=== PATIENT | male | born 1995 | race American Indian/Alaskan Native ===

== ENCOUNTER 2017-07-02 09:28 | Emergency (ER) | payer BC, OTHER ==
--- NOTE | 2017-07-02 09:42 | EDM.PDOC ---
ED HPI GENERAL MEDICAL PROBLEM - General Chief Complaint: General Stated Complaint: RT ANKLE Time Seen by Provider: 07/02/17 09:37 Source of Information: Reports: Patient History Limitations: Reports: No Limitations - History of Present Illness INITIAL COMMENTS - FREE TEXT/NARRATIVE: 21 yo Elem Male c/o twisting right ankle last night @ 10pm on uneven cement Onset Date: 07/01/17 Onset Time: 22:00 Duration: Hour(s): Location: Reports: Lower Extremity, Right Quality: Reports: Ache Severity: Mild Improves with: Reports: Immobilization Worsens with: Reports: Movement Context: Reports: Trauma (twisted on un-even cement) Associated Symptoms: Reports: No Other Symptoms Right Ankle Pain Score (Numeric/FACES): 5 - Related Data Allergies Allergy/AdvReac Type Severity Reaction Status Date / Time No Known Drug Allergies Allergy none Verified 07/02/17 09:38 Home Meds: Home Meds Lisinopril 10 mg PO DAILY 07/02/17 [History] metFORMIN HCl [Metformin HCl] 100 mg PO BID 07/02/17 [History] Past Medical History - Past Health History Medical/Surgical History: Denies Medical/Surgical History Social & Family History - Tobacco Use Smoking Status *Q: Never Smoker Second Hand Smoke Exposure: No - Alcohol Use Days Per Week of Alcohol Use: 0 - Recreational Drug Use Recreational Drug Use: No Review of Systems - Review of Systems Review Of Systems: See Below Constitutional: Reports: No Symptoms Eyes: Reports: No Symptoms Ears: Reports: No Symptoms Nose: Reports: No Symptoms Mouth/Throat: Reports: No Symptoms Respiratory: Reports: No Symptoms Cardiovascular: Reports: No Symptoms GI/Abdominal: Reports: No Symptoms Genitourinary: Reports: No Symptoms Musculoskeletal: Reports: Joint Pain (right ankle) Skin: Reports: No Symptoms Neurological: Reports: No Symptoms Psychiatric: Reports: No Symptoms ED EXAM, GENERAL - Physical Exam Exam: See Below Exam Limited By: No Limitations General Appearance: Alert, No Apparent Distress, Obese Eye Exam: Bilateral Eye: EOMI Ears: Normal External Exam Throat/Mouth: Normal Inspection Head: Atraumatic Neck: Normal Inspection, Supple Respiratory/Chest: No Respiratory Distress, Lungs Clear Cardiovascular: Normal Peripheral Pulses, Regular Rate, Rhythm GI/Abdominal: Normal Bowel Sounds, Soft Back Exam: Normal Inspection Extremities: Normal Inspection, Limited Range of Motion Neurological: Alert, Oriented, CN II-XII Intact Psychiatric: Normal Affect Skin Exam: Warm, Dry, Erythema (right anterior ankle) Course - Vital Signs Last Recorded V/S: Last Vital Signs Temp 36.3 C 07/02/17 09:54 Pulse 82 07/02/17 09:54 Resp 16 07/02/17 09:54 BP 137/71 07/02/17 09:54 Pulse Ox 99 07/02/17 09:54 - Orders/Labs/Meds Orders: Active Orders 24 hr Category Date Time Status Ankle 2V Rt [CR] Urgent Exams 07/02/17 09:35 Taken Departure - Departure Time of Disposition: 10:00 Disposition: Home, Self-Care 01 Condition: Good Clinical Impression: Strain of ankle, right Qualifiers: Encounter type: initial encounter Qualified Code(s): S96.911A - Strain of unspecified muscle and tendon at ankle and foot level, right foot, initial encounter - Discharge Information Forms: ED Department Discharge Additional Instructions: Rest Please elevate and Apply Ice Pack TID X 15mins. For pain take OTC Extra Strength Tylenol 500mg Q 4-6 hours PRN F/U w/ PCP - My Orders Last 24 Hours: My Active Orders 07/02/17 09:35 Ankle 2V Rt [CR] Urgent - Assessment/Plan Last 24 Hours: My Active Orders 07/02/17 09:35 Ankle 2V Rt [CR] Urgent
[2017-07-02 09:48] VITALS: BP 137/71
--- NOTE | 2017-07-02 10:23 | CR ---
CLINICAL HISTORY: 21-year-old female "twisted" right ankle (yesterday). INTERPRETATION: AP lateral views of the right ankle confirm some mild bimalleolar soft tissue swellin g but no appreciable ankle joint effusion and no sign of underlying fracture right ankle bones. Symme trically intact tibiotalar mortise joint. Calcaneus and hindfoot unremarkable. No foreign bodies. CONCLUSION: Sprain.
== END 2017-07-02 10:13 | disposition home or self-care (01) ==
LOC: DL.ED 09:28
DX: S96.911A Strain of unspecified muscle and tendon at ankle and foot level, right foot, initial encounter (principal); Z79.899 Other long term (current) drug therapy; X50.1XXA Overexertion from prolonged static or awkward postures, initial encounter
CPT/HCPCS: 73600-RT; 99283

== ENCOUNTER 2019-12-16 00:03 | Emergency (ER) | payer MEDICAID, OTHER ==
[2019-12-16] MEDS ORDERED: Ondansetron 4 MG Tab.DIS PO ONE (02:26)
[2019-12-16] MEDS ORDERED: GI Cocktail Oral Solution 30 ML PO ONE (02:26)
[2019-12-16 03:09] VITALS: BP 131/65; PULSE 96
--- NOTE | 2019-12-16 03:15 | EDM.PDOC ---
ED HPI GENERAL MEDICAL PROBLEM - General Chief Complaint: General Stated Complaint: CHEST PAIN AND PUKING Time Seen by Provider: 12/16/19 02:15 Source of Information: Reports: Patient, Family, RN, RN Notes Reviewed History Limitations: Reports: No Limitations - History of Present Illness INITIAL COMMENTS - FREE TEXT/NARRATIVE: patient presents to ER with complaint of epigastric pain and burning in the center of the chest, as well as vomiting. Patient states he was laying flat when he became nauseated and vomited. Patient states he attempted again later to try to lay flat to see if it would reprouce the same problem, which it did. Patient states he had a burger and fries for supper. Patient states he still has his gallbladder and appendix. Patient admits to drinking alcohol, a traveler , every 2 days. Patient appears anxious. Patient states he is a type II day Adrian but has not taken his insulin in over a month, and has not checked his blood sugar in over a month. Onset: Today, Sudden Location: Reports: Abdomen Epigastric Pain Score (Numeric/FACES): 1 Right Anterior Chest Pain Score (Numeric/FACES): 4 - Related Data Allergies Allergy/AdvReac Type Severity Reaction Status Date / Time No Known Drug Allergies Allergy none Verified 12/16/19 00:33 Home Meds: Home Meds Lisinopril 10 mg PO DAILY 07/02/17 [History] metFORMIN HCl [Metformin HCl] 100 mg PO BID 07/02/17 [History] Past Medical History - Past Health History Medical/Surgical History: Denies Medical/Surgical History Endocrine/Metabolic History: Reports: Diabetes, Type II Social & Family History - Family History Family Medical History: Noncontributory - Tobacco Use Smoking Status *Q: Current Every Day Smoker Years of Tobacco use: 4 Packs/Tins Daily: 0.5 - Caffeine Use Caffeine Use: Reports: Energy Drinks - Alcohol Use Date of Last Drink: 12/14/19 - Recreational Drug Use Recreational Drug Use: No ED ROS GENERAL - Review of Systems Review Of Systems: Comprehensive ROS is negative, except as noted in HPI. ED EXAM, GENERAL - Physical Exam Exam: See Below Exam Limited By: No Limitations General Appearance: Alert, WD/WN, Anxious, Mild Distress Eye Exam: Bilateral Eye: EOMI, Normal Inspection Ears: Normal External Exam, Hearing Grossly Normal Nose: Normal Inspection Throat/Mouth: Normal Inspection, Normal Voice, No Airway Compromise Head: Atraumatic, Normocephalic Neck: Normal Inspection, Supple, Non-Tender, Full Range of Motion Respiratory/Chest: No Respiratory Distress, Lungs Clear, Normal Breath Sounds, No Accessory Muscle Use, Chest Non-Tender Cardiovascular: Normal Peripheral Pulses, Regular Rate, Rhythm, No Edema, No Gallop, No JVD, No Murmur, No Rub Peripheral Pulses: 2+: Radial (L), Radial (R) GI/Abdominal: Normal Bowel Sounds, Soft, Non-Tender (Male) Exam: Deferred Rectal (Males) Exam: Deferred Back Exam: Normal Inspection, Full Range of Motion, NT Extremities: Normal Inspection, Normal Range of Motion, Non-Tender, Normal Capillary Refill, No Pedal Edema Neurological: Alert, Oriented, CN II-XII Intact, Normal Cognition, Normal Gait, Normal Reflexes, No Motor/Sensory Deficits Psychiatric: Normal Affect, Normal Mood, Anxious Skin Exam: Warm, Dry, Intact, Normal Color, No Rash Lymphatic: No Adenopathy Course - Vital Signs Last Recorded V/S: Last Vital Signs Temp 97.5 F 12/16/19 03:08 Pulse 96 12/16/19 03:08 Resp 19 12/16/19 03:08 BP 131/65 12/16/19 03:08 Pulse Ox 96 12/16/19 03:08 - Orders/Labs/Meds Meds: Medications Discontinued Medications Generic Name Dose Route Start Last Admin Trade Name Freq PRN Reason Stop Dose Admin Al Hydroxide/Mg Hydroxide 30 ml 12/16/19 02:26 12/16/19 02:52 Gi Cocktail PO 12/16/19 02:27 30 ml ONETIME ONE Administration Ondansetron HCl 4 mg 12/16/19 02:26 12/16/19 02:33 Zofran Odt PO 12/16/19 02:27 4 mg ONETIME ONE Administration - Re-Assessments/Exams Free Text/Narrative Re-Assessment/Exam: patient states feeling much improved after GI cocktail and antinausea medication. Departure - Departure Time of Disposition: 03:13 Disposition: Home, Self-Care 01 Condition: Fair Clinical Impression: GERD (gastroesophageal reflux disease) Qualifiers: Esophagitis presence: esophagitis presence not specified Qualified Code(s): K21.9 - Gastro-esophageal reflux disease without esophagitis - Discharge Information *PRESCRIPTION DRUG MONITORING PROGRAM REVIEWED*: No *COPY OF PRESCRIPTION DRUG MONITORING REPORT IN PATIENT INES: No Instructions: Food Choices for Gastroesophageal Reflux Disease, Adult, Easy-to- Read, Heartburn, [id number], Gastroesophageal Reflux Disease, Adult, Easy-to- Read Forms: ED Department Discharge Additional Instructions: Begin taking Prilosec over the counter as directed Follow up with your primary care facility Follow the food choices for GERD Drink water, abstain from drinking caffeine or alcohol Sepsis Event Note - Evaluation Sepsis Screening Result: No Definite Risk - Focused Exam Vital Signs: Vital Signs Temp Pulse Resp BP Pulse Ox 12/16/19 03:08 97.5 F 96 19 131/65 96 12/16/19 00:22 97 F 116 H 24 H 145/96 H 96 Date Exam was Performed: 12/16/19 Time Exam was Performed: 04:07
== END 2019-12-16 03:20 | disposition home or self-care (01) ==
LOC: DL.ED 00:03
DX: K21.9 Gastro-esophageal reflux disease without esophagitis (principal); E11.9 Type 2 diabetes mellitus without complications; F17.210 Nicotine dependence, cigarettes, uncomplicated; Z79.84 Long term (current) use of oral hypoglycemic drugs; Z79.899 Other long term (current) drug therapy
CPT/HCPCS: 82962; 99284; A9270; 99283

== ENCOUNTER 2020-09-08 21:03 | Emergency (ER) | payer OTHER ==
[2020-09-08] MEDS ORDERED: fentaNYL 100 MCG/2 ML SDV IVPUSH ONE (21:13)
[2020-09-08] MEDS ORDERED: Iopamidol 612 MG/ML 100 ML Bottle IVPUSH ONE (21:13)
[2020-09-08] MEDS ORDERED: Sodium Chloride 0.9% 1,000 ML IV ONE (21:13)
[2020-09-08] MEDS ORDERED: Clindamycin Phosphate 900 MG in Sodium Chloride 0.9% 100 ML IV ONE (21:13)
[2020-09-08] MEDS ORDERED: Ondansetron 4 MG/2 ML SDV IVPUSH ONE (21:14)
--- NOTE | 2020-09-08 21:16 | EDM.PDOC ---
ED HPI GENERAL MEDICAL PROBLEM - General Chief Complaint: ENT Problem Stated Complaint: SEVERE TOOTH ABSCESS, SWOLLEN FROM EAR TO NECK Time Seen by Provider: 09/08/20 21:15 Source of Information: Reports: Patient History Limitations: Reports: No Limitations - History of Present Illness INITIAL COMMENTS - FREE TEXT/NARRATIVE: saw DDS yesterday for tooth abscess, taking clinda but not better right face more swollen Right Face/Facial Pain Score (Numeric/FACES): 7 - Related Data Allergies Allergy/AdvReac Type Severity Reaction Status Date / Time No Known Drug Allergies Allergy none Verified 09/08/20 21:18 Home Meds: Home Meds Lisinopril 10 mg PO DAILY 07/02/17 [History] metFORMIN HCl [Metformin HCl] 100 mg PO BID 07/02/17 [History] Past Medical History - Past Health History Medical/Surgical History: Denies Medical/Surgical History Endocrine/Metabolic History: Reports: Diabetes, Type II Social & Family History - Family History Family Medical History: No Pertinent Family History - Caffeine Use Caffeine Use: Reports: Energy Drinks ED ROS ENT - Review of Systems Review Of Systems: Comprehensive ROS is negative, except as noted in HPI. ED EXAM, ENT - Physical Exam Exam: See Below Exam Limited By: No Limitations General Appearance: Alert, WD/WN, Mild Distress, Moderate Distress, Other (pain) Ears: Hearing Grossly Normal Mouth/Throat: Dental Abcess, Dental Pain, Dental Tenderness, Pharyngeal Erythema, Trismus, Other (right side). No: Drooling, Hoarse Voice Head: Atraumatic Neck: Non-Tender, Full Range of Motion Respiratory/Chest: No Respiratory Distress Cardiovascular: Regular Rate, Rhythm GI/Abdominal: Soft, Non-Tender (Male) Exam: Deferred Rectal (Males) Exam: Deferred Neurological: Alert, Oriented, Normal Cognition, Normal Gait, No Motor/Sensory Deficits Psychiatric: Tearful Skin: Warm, Dry, Normal Color Lymphatic: No Adenopathy Course - Vital Signs Last Recorded V/S: Last Vital Signs Temp 36.4 C 09/09/20 00:20 Pulse 94 09/09/20 00:20 Resp 18 09/09/20 00:20 BP 129/71 09/09/20 00:20 Pulse Ox 97 09/09/20 00:20 - Orders/Labs/Meds Labs: Laboratory Tests 09/08/20 09/08/20 09/08/20 Range/Units 22:40 22:40 22:40 WBC 16.6 H (5.0-10.0) 10^3/uL RBC 4.10 L (4.6-6.2) 10^6/uL Hgb 13.1 L D (14.0-18.0) g/dL Hct 38.1 L (40.0-54.0) % MCV 92.9 D (80-100) fL MCH 32.0 (27.0-34.0) pg MCHC 34.4 (33.0-35.0) g/dL Plt Count 348 D (150-450) 10^3/uL Neut % (Auto) 75.5 H (42.2-75.2) % Lymph % (Auto) 9.8 L (20.5-50.1) % Howard % (Auto) 13.8 H (2-8) % Eos % (Auto) 0.8 L (1.0-3.0) % Baso % (Auto) 0.1 (0.0-1.0) % Add Manual Diff Yes Neutrophils % (Manual) 70 (42-75) % Band Neutrophils % 5 % Lymphocytes % (Manual) 10 L (20-50) % Monocytes % (Manual) 15 H (2-8) % Sodium 129 L (136-145) mmol/L Potassium 3.7 (3.5-5.1) mmol/L Chloride 92 L (98-107) mmol/L Carbon Dioxide 26 (21-32) mmol/L Anion Gap 14.7 H (7-13) mEq/L BUN 12 (7-18) mg/dL Creatinine 0.86 (0.70-1.30) mg/dL Est Cr Clr Drug Dosing 141.07 mL/min Estimated GFR (MDRD) > 60 BUN/Creatinine Ratio 14.0 (No establ ref range) Glucose 219 H (74-99) mg/dL Lactic Acid 1.1 (0.4-2.0) mmol/L Calcium 9.0 (8.5-10.1) mg/dL Total Bilirubin 0.7 (0.2-1.0) mg/dL AST 11 L (15-37) U/L ALT 19 (16-63) U/L Alkaline Phosphatase 84 (46-116) U/L Total Protein 7.3 (6.4-8.2) g/dL Albumin 2.3 L (3.4-5.0) g/dL Globulin 5.0 Albumin/Globulin Ratio 0.46 Meds: Medications Discontinued Medications Generic Name Dose Route Start Last Admin Trade Name Rinkuq PRN Reason Stop Dose Admin Fentanyl 50 mcg 09/08/20 21:13 09/08/20 21:50 Sublimaze IVPUSH 09/08/20 21:14 50 mcg ONETIME ONE Administration Clindamycin Phosphate 900 mg/ 106 mls @ 200 mls/hr 09/08/20 21:13 09/08/20 21:53 Sodium Chloride IV 09/08/20 21:44 200 mls/hr ONETIME ONE Administration Sodium Chloride 1,000 mls @ 999 mls/hr 09/08/20 21:13 09/08/20 21:52 Normal Saline IV 09/08/20 22:13 999 mls/hr .BOLUS ONE Administration Iopamidol 100 ml 09/08/20 21:13 09/08/20 21:30 Isovue-300 (61%) IVPUSH 09/08/20 21:14 100 ml ONETIME ONE Administration Ondansetron HCl 4 mg 09/08/20 21:14 09/08/20 21:48 Zofran IVPUSH 09/08/20 21:15 4 mg ONETIME ONE Administration - Re-Assessments/Exams Free Text/Narrative Re-Assessment/Exam: 09/09/20 00:23 case discussed with ENT @ [facility] who referred to [facility]. Dr Souza [facility] @ [place] kindly accepted pt and Dr Darby hospitalist. Departure - Departure Time of Disposition: 00:24 Disposition: DC/Tfer to Acute Hospital 02 Condition: Good Clinical Impression: Mandibular abscess, Pharyngeal abscess - Discharge Information Forms: Interfacility Transfer EMTALA Sepsis Event Note (ED) - Focused Exam Vital Signs: Vital Signs Temp Pulse Resp BP Pulse Ox 09/09/20 00:20 36.4 C 94 18 129/71 97 09/08/20 21:16 36.8 C 118 H 18 151/91 H 96
--- NOTE | 2020-09-08 22:16 | CT ---
PROCEDURE INFORMATION: Exam: CT Maxillofacial With Contrast Exam date and time: 09/08/2020 9:41 PM Age: 24 years old Clinical indication: Other: Pain; Additional info: Right facial swelling tooth abcess TECHNIQUE: Imaging protocol: Computed tomography images of the face with intravenous contrast. Radiation optimization: All CT scans at this facility use at least one of these dose optimization techniques: automated exposure control; mA and/or kV adjustment per patient size (includes targeted exams where dose is matched to clinical indication); or iterative reconstruction. Contrast material: [id number]; Contrast volume: 100 ml; Contrast route: INTRAVENOUS (IV); COMPARISON: No relevant prior studies available. FINDINGS: Orbital cavity: Orbits are normal. Globes are unremarkable. Bones/joints: No acute fracture. Paranasal sinuses: Bilateral maxillary sinus mucous retention cyst. No air-fluid levels. Frontal, ethmoid, and sphenoid sinuses are clear. Soft tissues: Large heterogeneous collection suggesting an abscess in the right Naomy mandibular tissues. This is submandibular and retromandibular in location. This measures 6.4 x 6.7 x 6 cm. This is consistent with a soft tissue abscess. This extends deep into the parapharyngeal region on the right side. The parapharyngeal component of this abscess seen on axial series 3, image 30, measures 3.8 x 3.6 cm AP and transversely. Right masseter muscle is enlarged and shows decreased attenuation consistent with myositis. Intramuscular abscess is also suggested with decreased attenuation suggesting focal fluid collection. There is narrowing of the posterior oropharynx and displacement of tissues towards the left. There is right tonsillar fullness and tonsillar abscess type change. This all appears to communicate with the abscess in the submandibular, retromandibular, and masseter muscle region. Lymph nodes: Lymphadenopathy in the right submandibular region. Largest lymph node measuring approximately 17 by 15 mm. Right cervical chain lymphadenopathy is also noted. Largest lymph node measuring approximately 3.5 x 2.4 cm. IMPRESSION: 1. Large right-sided soft tissue abscess which has perimandibular, parapharyngeal, and intramuscular components within the masseter muscle. 2. Right submandibular adenopathy. 3. Maxillary sinus small mucous retention cysts. 4. No mandibular osteolytic or destructive lesions. No features to suggest periodontal abscess. There is suggestion of a large dental bhavani in the most posterior right mandibular molar.
[2020-09-08 23:12] LABS: ANION GAP 14.7 mEq/L (7-13); CHLORIDE,CL 92 mmol/L (98-107); SODIUM,NA 129 mmol/L (136-145)
[2020-09-09 00:21] VITALS: BP 129/71; PULSE 94
== END 2020-09-09 00:52 ==
LOC: DL.ED 21:03
DX: M27.2 Inflammatory conditions of jaws (principal); J39.1 Other abscess of pharynx; E11.9 Type 2 diabetes mellitus without complications; Z79.84 Long term (current) use of oral hypoglycemic drugs
CPT/HCPCS: 36415; 70487; 80053; 83605; 85025; 96365; 96375; 99285; J2405; J3010; J3490; J7030; J7050; Q9967

== ENCOUNTER 2021-02-17 09:25 | Emergency (ER) | payer BC, MEDICAID ==
[2021-02-17] MEDS ORDERED: Ketorolac 30 MG/ML SDV IM ONE (09:50)
[2021-02-17 09:54] VITALS: BP 137/81; PULSE 119
--- NOTE | 2021-02-17 10:32 | EDM.PDOC ---
Scribed by Nasrin Madsen 02/17/21 1024 for Sonu Carr MD ED HPI GENERAL MEDICAL PROBLEM - General Chief Complaint: General Stated Complaint: [id number] LEFT SIDE PAIN Time Seen by Provider: 02/17/21 09:50 Source of Information: Reports: Patient, RN, RN Notes Reviewed History Limitations: Reports: No Limitations - History of Present Illness INITIAL COMMENTS - FREE TEXT/NARRATIVE: Patient presents to ED by POV stating that he perez left rib pain. He fell over a lawn chair this morning. Denies any other injury. Hurts to take a deep breath and hurts to move. Onset: Today Duration: Getting Worse Location: Reports: Other (rib area left) Quality: Reports: Ache Severity: Severe Improves with: Reports: None Worsens with: Reports: None Associated Symptoms: Reports: No Other Symptoms Left Chest Pain Score (Numeric/FACES): 5 - Related Data Allergies Allergy/AdvReac Type Severity Reaction Status Date / Time No Known Drug Allergies Allergy none Verified 09/08/20 21:18 Home Meds: Home Meds Lisinopril 10 mg PO DAILY 07/02/17 [History] metFORMIN HCl [Metformin HCl] 100 mg PO BID 07/02/17 [History] Past Medical History - Past Health History Medical/Surgical History: Denies Medical/Surgical History Endocrine/Metabolic History: Reports: Diabetes, Type II - Past Surgical History GI Surgical History: Reports: Hernia, Abdominal, Hernia Repair/Other Social & Family History - Family History Family Medical History: No Pertinent Family History - Caffeine Use Caffeine Use: Reports: Soda - Living Situation & Occupation Living situation: Reports: with Family ED ROS GENERAL - Review of Systems Review Of Systems: Comprehensive ROS is negative, except as noted in HPI. ED EXAM, GENERAL - Physical Exam Exam: See Below Exam Limited By: No Limitations General Appearance: Alert, WD/WN, No Apparent Distress, Obese Nose: Normal Inspection Throat/Mouth: Normal Inspection Head: Atraumatic, Normocephalic Neck: Normal Inspection, Supple, Non-Tender, Full Range of Motion Respiratory/Chest: No Respiratory Distress, Lungs Clear, No Accessory Muscle Use, Decreased Breath Sounds, Other (left lateral lower chest wall tenderness without visible bruising, redness or deformity. ). No: Crackles, Rales, Rhonchi, Wheezing Cardiovascular: Regular Rate, Rhythm GI/Abdominal: Normal Bowel Sounds, Soft, Non-Tender, No Organomegaly, No Distention, No Abnormal Bruit, No Mass Back Exam: Normal Inspection, Full Range of Motion. No: CVA Tenderness (L), CVA Tenderness (R) Extremities: Normal Inspection, Normal Range of Motion, Non-Tender, Normal Capillary Refill, No Pedal Edema Neurological: Alert, Oriented, Normal Gait, No Motor/Sensory Deficits Psychiatric: Normal Affect, Normal Mood Skin Exam: Warm, Dry, Intact, Normal Color, No Rash Course - Vital Signs Last Recorded V/S: Last Vital Signs Temp 98.5 F 02/17/21 09:53 Pulse 119 H 02/17/21 09:53 Resp 22 H 02/17/21 09:53 BP 137/81 02/17/21 09:53 Pulse Ox 93 L 02/17/21 09:53 - Orders/Labs/Meds Meds: Medications Discontinued Medications Generic Name Dose Route Start Last Admin Trade Name Freq PRN Reason Stop Dose Admin Ketorolac Tromethamine 60 mg 02/17/21 09:50 02/17/21 09:55 Ketorolac 30 Mg/Ml Sdv IM 02/17/21 09:51 60 mg ONETIME ONE Administration - Radiology Interpretation Free Text/Narrative:: [facility] Final Radiology Report Call: [phone] assistance Online chat: [email or web address] Name: NIDA LILLY Age: 25Years M Date: 02/17/2021 SSN: -- : [id number] Study: CR RIBS 2V WO CHEST LT Requesting Physician: SONU CARR Images: 3 Addl Studies: Provided Clinical History: Fall, left rib/chest wall injury Contrast: Contrast Medium: Contrast Amount: Contrast Method: CONFIDENTIALITY STATEMENT This report is intended only for use by the referring physician, and only in accordance with law. If you received this in error, call [phone]. Page 1 of 1 PROCEDURE INFORMATION: Exam: XR Left Ribs Exam date and time: 02/17/2021 9:53 AM Age: 25 years old Clinical indication: Chest wall pain; Left; Additional info: Fall, left rib/chest wall injury TECHNIQUE: Imaging protocol: XR Left ribs. Views: 2 views. COMPARISON: No relevant prior studies available. FINDINGS: Bones/joints: Multiple views of the left ribs demonstrate no evidence for fracture. There is normal mineralization and alignment. Left lung is unremarkable. Soft tissues: Normal. IMPRESSION: No evidence for left rib fracture. Thank you for allowing us to participate in the care of your patient. Dictated and Authenticated by: Yasir Diaz MD 02/17/2021 10:29 AM Central Time ([place] & [place]) Departure - Departure Time of Disposition: 10:31 Disposition: Home, Self-Care 01 Condition: Good Clinical Impression: Contusion of left chest wall Qualifiers: Encounter type: initial encounter Qualified Code(s): S20.212A - Contusion of left front wall of thorax, initial encounter - Discharge Information *PRESCRIPTION DRUG MONITORING PROGRAM REVIEWED*: Not Applicable *COPY OF PRESCRIPTION DRUG MONITORING REPORT IN PATIENT INES: Not Applicable Instructions: Chest Wall Pain, [id number], Contusion, [id number] Forms: ED Department Discharge Additional Instructions: Rx: Naprosyn 500mg Activity as tolerated. Follow up in clinic if not improving as expected after 2 weeks. Sepsis Event Note (ED) - Focused Exam Vital Signs: Vital Signs Temp Pulse Resp BP Pulse Ox 02/17/21 09:53 98.5 F 119 H 22 H 137/81 93 L I have read and agree with the documentation that has been completed regarding this visit. By signing this record, I attest that the documentation was completed in my physical presence and is an accurate record of the encounter.
== END 2021-02-17 10:41 | disposition home or self-care (01) ==
LOC: DL.ED 09:25
DX: S20.212A Contusion of left front wall of thorax, initial encounter (principal); E11.9 Type 2 diabetes mellitus without complications; Z79.84 Long term (current) use of oral hypoglycemic drugs; Z79.899 Other long term (current) drug therapy; W07.XXXA Fall from chair, initial encounter
CPT/HCPCS: 71100; 96372; 99283; J1885

== ENCOUNTER 2021-06-09 18:16 | Emergency (ER) | payer BC, MEDICAID ==
[2021-06-09 19:19] VITALS: BP 150/73; PULSE 116
[2021-06-09] MEDS ORDERED: Acetaminophen 325 MG Tab PO ONE (19:45)
[2021-06-09] MEDS ORDERED: Ibuprofen 800 MG Tab PO ONE (19:45)
[2021-06-09] MEDS ORDERED: Penicillin V Potassium 250 MG Tab PO ONE (19:47)
[2021-06-09 20:13] LABS: AMPHETAMINES,URINE NEGATIVE (NEGATIVE); BARBITURATES,URINE NEGATIVE (NEGATIVE); BENZODIAZEPINE,URINE NEGATIVE (NEGATIVE); MDMA (ECSTASY), URINE NEGATIVE (NEGATIVE); METHADONE,URINE NEGATIVE (NEGATIVE); METHAMPHETAMINES,URINE NEGATIVE (NEGATIVE); OPIATES,URINE NEGATIVE (NEGATIVE); OXYCODONE,URINE NEGATIVE (NEGATIVE); PHENCYCLIDINE,URINE NEGATIVE (NEGATIVE); TCA,URINE NEGATIVE (NEGATIVE)
[2021-06-09 20:14] LABS: ANION GAP 20.3 mEq/L (7-13); CHLORIDE,CL 103 mmol/L (98-107); SODIUM,NA 141 mmol/L (136-145)
[2021-06-09 20:15] LABS: ACETAMINOPHEN 0 ug/mL (10-30 (Therapeutic))
--- NOTE | 2021-06-09 20:19 | EDM.PDOC ---
ED HPI GENERAL MEDICAL PROBLEM - General Chief Complaint: ENT Problem Stated Complaint: RIGHT SIDE TOP BACK MOLER, INFECTED Time Seen by Provider: 06/09/21 20:17 Source of Information: Reports: Patient History Limitations: Reports: No Limitations - History of Present Illness INITIAL COMMENTS - FREE TEXT/NARRATIVE: Patient is an unfortunate 25-year-old morbidly obese male who presents emerged part today with complaint of dental pain. The patient reports that he was in his normal state of health until 2 days ago when he started having pain to his right upper first molar, patient reports the pain is worse with palpation or eating or drinking cold liquids. He has no submandibular swelling he has had no trismus. Upon discussion the patient reports that he has had suicidal thoughts he has not developed a plan, he reports he has had these thoughts off and on for the last 6 months, he reports they have worsened over the last 2 weeks. The patient denies any plans, he reports no illicit drug use reports that he drinks alcohol on the weekends. He has had no nausea no vomiting no fever no chills no chest pain no shortness of breath no known coronavirus exposure and has had no recent travel. The patient reports he has not been evaluated nor has been hospitalized previously for suicidal thoughts Right Upper Tooth/Teeth Pain Score (Numeric/FACES): 3 - Related Data Allergies Allergy/AdvReac Type Severity Reaction Status Date / Time No Known Drug Allergies Allergy none Verified 06/09/21 19:28 Home Meds: Home Meds Lisinopril 10 mg PO DAILY 07/02/17 [History] metFORMIN HCl [Metformin HCl] 100 mg PO BID 07/02/17 [History] Ibuprofen 800 mg PO TID PRN #15 tablet 06/09/21 [Rx] Penicillin V Potassium 500 mg PO Q6HR #28 tab 06/09/21 [Rx] Past Medical History - Past Health History Medical/Surgical History: Denies Medical/Surgical History HEENT History: Reports: None Cardiovascular History: Reports: None Respiratory History: Reports: None Genitourinary History: Reports: None Musculoskeletal History: Reports: None Neurological History: Reports: None Psychiatric History: Reports: None Endocrine/Metabolic History: Reports: Diabetes, Type II Hematologic History: Reports: None Immunologic History: Reports: None Oncologic (Cancer) History: Reports: None Dermatologic History: Reports: None - Infectious Disease History Infectious Disease History: Reports: None - Past Surgical History Head Surgeries/Procedures: Reports: None GI Surgical History: Reports: Hernia, Abdominal, Hernia Repair/Other Social & Family History - Family History Family Medical History: No Pertinent Family History - Tobacco Use Tobacco Use Status *Q: Current Every Day Tobacco User Years of Tobacco use: 5 Packs/Tins Daily: 0.1 - Caffeine Use Caffeine Use: Reports: Coffee ED ROS ENT - Review of Systems Review Of Systems: See Below Constitutional: Denies: Fever, Chills HEENT: Reports: Other (dental pain) Psychiatric: Reports: Suicidal Ideation ED EXAM, ENT - Physical Exam Exam: See Below Exam Limited By: No Limitations General Appearance: Alert, WD/WN, Mild Distress Ears: Normal External Exam, Normal Canal, Hearing Grossly Normal, Normal TMs Nose: Normal Inspection, Normal Mucousa, No Blood Mouth/Throat: Dental Tenderness (r 1st upper molar, with fx, no gum swelling) Head: Atraumatic, Normocephalic Neck: Normal Inspection, Supple, Non-Tender, Full Range of Motion Respiratory/Chest: No Respiratory Distress, Lungs Clear, Normal Breath Sounds, No Accessory Muscle Use, Chest Non-Tender Cardiovascular: Normal Peripheral Pulses, Regular Rate, Rhythm, No Edema, No Gallop, No JVD, No Murmur, No Rub GI/Abdominal: Normal Bowel Sounds, Soft, Non-Tender, No Organomegaly, No Distention, No Abnormal Bruit, No Mass Back: Normal Inspection, Full Range of Motion Extremities: Normal Inspection, Normal Range of Motion, Non-Tender, No Pedal Edema, Normal Capillary Refill Neurological: Alert, Oriented, CN II-XII Intact, Normal Cognition, Normal Gait, Normal Reflexes, No Motor/Sensory Deficits Psychiatric: Flat Affect, Other (avoids eye contact, suicidal thoughts no plan) Skin: Warm, Dry, Intact, Normal Color, No Rash Course - Vital Signs Text/Narrative:: Patient's work-up today is reassuring, the patient had a flat affect and admitted to suicidal thoughts, the patient was seen by crisis and was set up to follow-up outpatient with the behavioral health center, patient will be discharged home and encouraged to return to the emergency department for any worsening condition Last Recorded V/S: Last Vital Signs Temp 98.1 F 06/09/21 19:17 Pulse 116 H 06/09/21 19:17 Resp 18 06/09/21 19:17 BP 150/73 H 06/09/21 19:17 Pulse Ox 96 06/09/21 19:17 - Orders/Labs/Meds Labs: Laboratory Tests 06/09/21 06/09/21 06/09/21 Range/Units 19:45 19:45 19:45 WBC 8.4 (5.0-10.0) 10^3/uL RBC 5.36 (4.6-6.2) 10^6/uL Hgb 16.7 D (14.0-18.0) g/dL Hct 49.7 (40.0-54.0) % MCV 92.7 (80-100) fL MCH 31.2 (27.0-34.0) pg MCHC 33.6 (33.0-35.0) g/dL Plt Count 355 (150-450) 10^3/uL Neut % (Auto) 44.6 (42.2-75.2) % Lymph % (Auto) 42.4 (20.5-50.1) % [place] % (Auto) 7.5 (2-8) % Eos % (Auto) 5.0 H (1.0-3.0) % Baso % (Auto) 0.5 (0.0-1.0) % Sodium 141 D (136-145) mmol/L Potassium 4.3 (3.5-5.1) mmol/L Chloride 103 (98-107) mmol/L Carbon Dioxide 22 (21-32) mmol/L Anion Gap 20.3 H (7-13) mEq/L BUN 7 (7-18) mg/dL Creatinine 0.90 (0.70-1.30) mg/dL Est Cr Clr Drug Dosing 133.63 mL/min Estimated GFR (MDRD) > 60 BUN/Creatinine Ratio 7.8 (No establ ref range) Glucose 238 H (70-99) mg/dL Calcium 8.5 (8.5-10.1) mg/dL Total Bilirubin 0.3 (0.2-1.0) mg/dL AST 44 H (15-37) U/L ALT 108 H (16-63) U/L Alkaline Phosphatase 93 (46-116) U/L Total Protein 8.4 H (6.4-8.2) g/dL Albumin 3.7 (3.4-5.0) g/dL Globulin 4.7 Albumin/Globulin Ratio 0.8 TSH, Ultra Sensitive 0.61 (0.36-3.74) uIU/mL Urine Color (YELLOW) Urine Appearance (CLEAR) Urine pH (5.0-9.0) Ur Specific [place] (1.005-1.030) Urine Protein (NEGATIVE) Urine Glucose (UA) (NEGATIVE) Urine Ketones (NEGATIVE) Urine Occult Blood (NEGATIVE) Urine Nitrite (NEGATIVE) Urine Bilirubin (NEGATIVE) Urine Urobilinogen (0.2-1.0) mg/dL Ur Leukocyte Esterase (NEGATIVE) Urine RBC (0-5) /HPF Urine WBC (0-5/HPF) /HPF Ur Epithelial Cells (NOT SEEN) /HPF Urine Bacteria (0-FEW/HPF) /HPF Urine Mucus (NOT SEEN) /LPF Salicylates < 2.8 L (2.8-20(Therapeutic)) mg/dL Urine Opiates Screen (NEGATIVE) Ur Oxycodone Screen (NEGATIVE) Urine Methadone Screen (NEGATIVE) Acetaminophen 0 L (10-30 (Therapeutic)) ug/mL Ur Barbiturates Screen (NEGATIVE) U Tricyclic Antidepress (NEGATIVE) Ur Phencyclidine Scrn (NEGATIVE) Ur Amphetamine Screen (NEGATIVE) U Methamphetamines Scrn (NEGATIVE) Urine MDMA Screen (NEGATIVE) U Benzodiazepines Scrn (NEGATIVE) Urine Cocaine Screen (NEGATIVE) U Marijuana (THC) Screen (NEGATIVE) 06/09/21 06/09/21 Range/Units 20:05 20:05 WBC (5.0-10.0) 10^3/uL RBC (4.6-6.2) 10^6/uL Hgb (14.0-18.0) g/dL Hct (40.0-54.0) % MCV (80-100) fL MCH (27.0-34.0) pg MCHC (33.0-35.0) g/dL Plt Count (150-450) 10^3/uL Neut % (Auto) (42.2-75.2) % Lymph % (Auto) (20.5-50.1) % [place] % (Auto) (2-8) % Eos % (Auto) (1.0-3.0) % Baso % (Auto) (0.0-1.0) % Sodium (136-145) mmol/L Potassium (3.5-5.1) mmol/L Chloride (98-107) mmol/L Carbon Dioxide (21-32) mmol/L Anion Gap (7-13) mEq/L BUN (7-18) mg/dL Creatinine (0.70-1.30) mg/dL Est Cr Clr Drug Dosing mL/min Estimated GFR (MDRD) BUN/Creatinine Ratio (No establ ref range) Glucose (70-99) mg/dL Calcium (8.5-10.1) mg/dL Total Bilirubin (0.2-1.0) mg/dL AST (15-37) U/L ALT (16-63) U/L Alkaline Phosphatase (46-116) U/L Total Protein (6.4-8.2) g/dL Albumin (3.4-5.0) g/dL Globulin Albumin/Globulin Ratio TSH, Ultra Sensitive (0.36-3.74) uIU/mL Urine Color Yellow (YELLOW) Urine Appearance Slightly cloudy (CLEAR) Urine pH 5.5 (5.0-9.0) Ur Specific [place] >= 1.030 (1.005-1.030) Urine Protein 100 H (NEGATIVE) Urine Glucose (UA) 500 H (NEGATIVE) Urine Ketones Trace H (NEGATIVE) Urine Occult Blood Negative (NEGATIVE) Urine Nitrite Negative (NEGATIVE) Urine Bilirubin Negative (NEGATIVE) Urine Urobilinogen 1.0 (0.2-1.0) mg/dL Ur Leukocyte Esterase Negative (NEGATIVE) Urine RBC Not seen (0-5) /HPF Urine WBC 0-5 (0-5/HPF) /HPF Ur Epithelial Cells Occasional (NOT SEEN) /HPF Urine Bacteria Occasional (0-FEW/HPF) /HPF Urine Mucus Moderate H (NOT SEEN) /LPF Salicylates (2.8-20(Therapeutic)) mg/dL Urine Opiates Screen Negative (NEGATIVE) Ur Oxycodone Screen Negative (NEGATIVE) Urine Methadone Screen Negative (NEGATIVE) Acetaminophen (10-30 (Therapeutic)) ug/mL Ur Barbiturates Screen Negative (NEGATIVE) U Tricyclic Antidepress Negative (NEGATIVE) Ur Phencyclidine Scrn Negative (NEGATIVE) Ur Amphetamine Screen Negative (NEGATIVE) U Methamphetamines Scrn Negative (NEGATIVE) Urine MDMA Screen Negative (NEGATIVE) U Benzodiazepines Scrn Negative (NEGATIVE) Urine Cocaine Screen Negative (NEGATIVE) U Marijuana (THC) Screen Negative (NEGATIVE) Meds: Medications Discontinued Medications Generic Name Dose Route Start Last Admin Trade Name Freq PRN Reason Stop Dose Admin Acetaminophen 975 mg 06/09/21 19:45 06/09/21 19:53 Acetaminophen 325 Mg Tab PO 06/09/21 19:46 975 mg NOW ONE Administration Ibuprofen 800 mg 06/09/21 19:45 06/09/21 19:54 Ibuprofen 800 Mg Tab PO 06/09/21 19:46 800 mg ONETIME ONE Administration Penicillin V Potassium 500 mg 06/09/21 19:47 06/09/21 19:54 Penicillin V Potassium 250 Mg Tab PO 06/09/21 19:48 500 mg Q12HR ONE Administration Departure - Departure Time of Disposition: 22:25 Disposition: Home, Self-Care 01 Condition: Good Clinical Impression: Pain, dental, Dental caries Depression Qualifiers: Depression Type: unspecified Qualified Code(s): F32.9 - Major depressive disorder, single episode, unspecified - Discharge Information *PRESCRIPTION DRUG MONITORING PROGRAM REVIEWED*: No *COPY OF PRESCRIPTION DRUG MONITORING REPORT IN PATIENT INES: No Prescriptions: Ibuprofen 800 mg PO TID PRN #15 tablet PRN Reason: Pain Penicillin V Potassium 500 mg PO Q6HR #28 tab Instructions: Dental Pain, Dental Caries, Adult, Major Depressive Disorder, Adult, [id number], Managing Depression, Adult Forms: ED Department Discharge Additional Instructions: Seek dentist ROSY, follow-up outpatient with [facility] as directed, return to the emergency department for any worsening condition Sepsis Event Note (ED) - Evaluation Sepsis Screening Result: No Definite Risk - Focused Exam Vital Signs: Vital Signs Temp Pulse Resp BP Pulse Ox 06/09/21 19:17 98.1 F 116 H 18 150/73 H 96
== END 2021-06-09 22:44 | disposition home or self-care (01) ==
LOC: DL.ED 18:16
DX: K02.9 Dental caries, unspecified (principal); F32.9 Major depressive disorder, single episode, unspecified; E11.9 Type 2 diabetes mellitus without complications; Z79.84 Long term (current) use of oral hypoglycemic drugs; Z72.0 Tobacco use; Z79.899 Other long term (current) drug therapy
CPT/HCPCS: 36415; 80053; 80143; 80179; 80305; 81001; 84443; 85025; 99284; A9270

== ENCOUNTER 2025-01-28 02:44 | Emergency (ER) | payer BC, MEDICAID ==
[2025-01-28 04:04] LABS: AMPHETAMINES,URINE NEGATIVE (NEGATIVE); BARBITURATES,URINE NEGATIVE (NEGATIVE); BENZODIAZEPINE,URINE NEGATIVE (NEGATIVE); MDMA (ECSTASY), URINE NEGATIVE (NEGATIVE); METHADONE,URINE NEGATIVE (NEGATIVE); METHAMPHETAMINES,URINE NEGATIVE (NEGATIVE); OPIATES,URINE NEGATIVE (NEGATIVE); OXYCODONE,URINE NEGATIVE (NEGATIVE); PHENCYCLIDINE,URINE NEGATIVE (NEGATIVE); TCA,URINE NEGATIVE (NEGATIVE)
[2025-01-28 04:37] LABS: BASOPHILS PERCENT AUTO 0.3 % (0.0-1.0); EOSINOPHILS PERCENT AUTO 2.6 % (1.0-3.0); HEMATOCRIT 44.8 % (40.0-54.0); HEMOGLOBIN 15.1 g/dL (14.0-18.0); LYMPHOCYTES PERCENT AUTO 27.7 % (20.5-50.1); MEAN CORPUSCULAR HEMOGLOBIN 31.4 pg (27.0-34.0); MEAN CORPUSCULAR HGB CONC 33.7 g/dL (33.0-35.0); MEAN CORPUSCULAR VOLUME 93.1 fL (80-100); MONOCYTES PERCENT AUTO 8.8 % (2-8); NEUTROPHILS PERCENT AUTO 60.6 % (42.2-75.2); PLATELET COUNT,PLT 294 10^3/uL (150-450); RED BLOOD CELL COUNT 4.81 10^6/uL (4.6-6.2); WHITE BLOOD CELL COUNT,WBC 9.7 10^3/uL (5.0-10.0)
[2025-01-28 04:39] LABS: APPEARANCE,URINE CLEAR (CLEAR); BILIRUBIN,URINE NEGATIVE (NEGATIVE); COLOR,URINE LIGHT YELLOW (YELLOW); GLUCOSE,URINE NEGATIVE (NEGATIVE); KETONES,URINE NEGATIVE (NEGATIVE); LEUKOCYTE ESTERASE,URINE NEGATIVE (NEGATIVE); NITRITE,URINE NEGATIVE (NEGATIVE); OCCULT BLOOD,URINE NEGATIVE (NEGATIVE); PH,URINE 5.5 (5.0-9.0); PROTEIN,URINE 30 (NEGATIVE); UROBILINOGEN,URINE 0.2 mg/dL (0.2-1.0)
[2025-01-28 04:53] LABS: RBC,URINE NOT SEEN /HPF (0-5); WBC,URINE 0-5 /HPF (0-5/HPF)
[2025-01-28 04:54] LABS: BACTERIA,URINE RARE /HPF (0-FEW/HPF); EPITHELIAL CELLS,URINE FEW /HPF (NOT SEEN); HYALINE CASTS,URINE RARE; MUCUS,URINE FEW /LPF (NOT SEEN)
[2025-01-28 05:02] LABS: ANION GAP 17.1 mEq/L (7-13); BILIRUBIN TOTAL 0.7 mg/dL (0.2-1.0); BUN/CREATININE RATIO 8.8 (No establ ref range); CALCIUM 9.2 mg/dL (8.5-10.1); CREATININE 1.02 mg/dL (0.70-1.30); EST CRCL DRUG DOSING (CG) 110.33 mL/min; POTASSIUM,K 5.1 mmol/L (3.5-5.1); PROTEIN TOTAL,TP 8.1 g/dL (6.4-8.2); TSH ULTRASENSITIVE 1.04 uIU/mL (0.36-3.74)
[2025-01-28 11:27] VITALS: BP 121/79; PULSE 76
[2025-01-28] MEDS ORDERED: Sodium Chloride 0.9% 10 ML Syringe FLUSH PRN (12:21)
== END 2025-01-28 13:45 ==
LOC: DL.ED 02:44
DX: R45.851 Suicidal ideations (principal); E66.9 Obesity, unspecified; E11.9 Type 2 diabetes mellitus without complications; F17.210 Nicotine dependence, cigarettes, uncomplicated; Z79.899 Other long term (current) drug therapy; Z68.41 Body mass index [BMI] 40.0-44.9, adult
CPT/HCPCS: 36415; 80053; 80143; 80179; 80305-QW; 80307; 81001; 82947; 84443; 85025; 87428-QW; 93005; 99285

== ENCOUNTER 2025-03-24 05:26 | Day surgery (SDC) | payer BC, OTHER ==
[2025-03-24] MEDS ORDERED: dexmedeTOMIDine HCl 200 MCG/2 ML SDV IV ONE (05:27)
[2025-03-24] MEDS ORDERED: Lactated Ringers 1,000 ML IV ONE (05:27)
[2025-03-24] MEDS ORDERED: Propofol 200 MG/20 ML SDV IV ONE (05:27)
[2025-03-24] MEDS ORDERED: Propofol 200 MG/20 ML SDV ONE ×2 (05:32→06:58)
[2025-03-24] MEDS: Lactated Ringers 1,000 ML IV SCH (05:50)
[2025-03-24 08:25] VITALS: BP 97/44; PULSE 68
== END 2025-03-24 08:28 | disposition home or self-care (01) ==
LOC: DL.ENDO 05:26
PROVIDERS: ATTEND Internal Medicine Gastroenterology
DX: Z12.11 Encounter for screening for malignant neoplasm of colon (principal); R19.5 Other fecal abnormalities; E11.9 Type 2 diabetes mellitus without complications; E66.9 Obesity, unspecified; Z68.41 Body mass index [BMI] 40.0-44.9, adult
CPT/HCPCS: 45378; J2704; J7120; 00811